=== PATIENT | female | born 1970 | race Caucasian/White ===

== ENCOUNTER 2019-09-25 01:00 | Emergency (ER) | payer BC, OTHER ==
--- NOTE | 2019-09-25 01:56 | PDOC ---
Attending Attestation - Resident Resident Name: Tia Hugo - ED Attending Attestation I have performed the following: I have examined & evaluated the patient, The case was reviewed & discussed with the resident, I agree w/resident's findings & plan - HPI HPI: 09/25/19 04:28 Pt comes with scapular back/chest pain that is muscular in nature. Pt is worried that it may be her heart. She has normal vitals and she is walking about the ER. - Physicial Exam PE: 09/25/19 04:30 Agree with resident exam. - Medical Decision Making 09/25/19 03:16 CBC normal; chem pending 09/25/19 04:29 Chem normally; EKG normal exam is normal CXR canceled as pt wants to go home and she has normal vitals and normal EKG and normal heart and lung exam, and as the meds are helping her pain. Heart Score/ECG Review - ECG Intrepretation Rhythm: Regular Rhythm - Juliaetta Juliaetta: Normal - P and IA Prominent R with upright T in V1 (true posterior MS): No Delta Wave(s) Present: No WPW: No - QRS Poor R Wave Progression: No Q Wave Present: No - ST and T Early Repolarization: No Non Specific ST-T Wave changes: No Flattened T Waves: No Prolonged Q-T Interval: No - ECG Impressions Normal ECG: Yes Non-specific ST Elevation: No Ischemic Changes: No Bradycardia: No Torsades shaggy Pointes: No WPW: No
[2019-09-25 01:59] VITALS: TEMP 97.2; BMI 27.8
[2019-09-25] MEDS ORDERED: METHOCARBAMOL 500 MG TABLET PO ONE (02:25)
[2019-09-25] MEDS ORDERED: LIDOCAINE 5% TOPICAL PATCH TP ONE (02:25)
[2019-09-25] MEDS ORDERED: KETOROLAC TROMETHAMINE 30 MG/1 ML VIAL IVPUSH ONE (02:26)
[2019-09-25] MEDS ORDERED: METHOCARBAMOL 500 MG TABLET ONE (02:38)
[2019-09-25] MEDS ORDERED: KETOROLAC TROMETHAMINE 30 MG/1 ML VIAL ONE (02:39)
[2019-09-25] MEDS ORDERED: LIDOCAINE 5% TOPICAL PATCH ONE (02:39)
[2019-09-25 02:46] LABS: BASO % 1.1 % (0-2.0); EOS % 4.6 % (0-4.5); HEMATOCRIT 41.1 % (32.4-45.2); HEMOGLOBIN 13.4 GM/dL (10.7-15.3); LYMPH % 33.8 % (8-40); MCH 26.8 pg (25.7-33.7); MCHC 32.6 g/dl (32.0-36.0); MEAN CELL VOLUME 82.2 fl (80-96); MEAN PLT VOLUME 9.1 fl (7.5-11.1); MONO % 10.2 % (3.8-10.2); NEUT % 50.3 % (42.8-82.8); PLATELET COUNT 278 K/MM3 (134-434); RDW 13.4 % (11.6-15.6); WHITE BLOOD COUNT 9.3 K/mm3 (4.0-10.0)
[2019-09-25] MEDS ORDERED: ALBUTEROL SO4 2.5/IPRATROPIUM 0.5 INH SOL 3 ML VIAL.NEB. NEB ONE (03:28)
--- NOTE | 2019-09-25 03:47 | PDOC ---
History of Present Illness - General Chief Complaint: Chest Pain Stated Complaint: RIGHT BACK PAIN/CHEST PAIN Time Seen by Provider: 09/25/19 01:46 History Source: Patient Exam Limitations: No Limitations - History of Present Illness Initial Comments: 09/25/19 07:46 48y F with PMH of Asthma presenting to ED with complaints of R upper back pain that started a few weeks ago but worse yesterday when she woke up from a nap. Pt states that the pain is in the R posterior shoulder, worse with movements and deep inspiration. She also endorses chest tightness. Denies SOB, injury, neck pain, numbness/tingling, cough, congestion, n/v/d, abdominal pain, travel, use of OCP, surgery, headache, leg swelling/pain. PMD: PMH: see hpi PSH: none Meds: none Allergies: codeine Social: denies Past History - Past Medical History Allergies/Adverse Reactions: Allergies Allergy/AdvReac Type Severity Reaction Status Date / Time codeine Allergy Verified 09/25/19 01:55 Home Medications: Ambulatory Orders Albuterol Sulfate Inhaler - [Ventolin Hfa *Inhaler*] 1 - 2 inh IH Q4H PRN #1 inhaler 04/19/13 Fluticasone Prop 0.05% Nasal [Flonase] 1 - 2 spray NS DAILY PRN #1 spray.pump Loratadine [Claritin] 10 mg PO DAILY PRN #10 tablet 04/19/13 predniSONE [Deltasone -] 20 mg PO DAILY #5 tablet 04/19/13 Methocarbamol [Robaxin -] 500 mg PO TID #21 tablet 09/25/19 hydrOXYzine HCL LIQUID [Atarax Liquid -] 10 mg PO TID #120 ml 09/25/19 Asthma: Yes COPD: No - Psycho Social/Smoking Cessation Hx Smoking Status: No Smoking History: Never smoked Have you smoked in the past 12 months: No Number of Cigarettes Smoked Daily: 0 Information on smoking cessation initiated: No Hx Alcohol Use: No Drug/Substance Use Hx: No Review of Systems - Review of Systems Constitutional: No: Symptoms Reported HEENTM: No: Symptoms Reported Respiratory: Yes: See HPI Cardiac (ROS): Yes: See HPI ABD/GI: No: Symptoms Reported : No: Symptoms Reported Musculoskeletal: Yes: See HPI Integumentary: No: Symptoms Reported Neurological: No: Symptoms reported *Physical Exam - Vital Signs Last Vital Signs Temp Pulse Resp BP Pulse Ox 97.2 F L 74 20 117/76 98 09/25/19 01:15 09/25/19 01:15 09/25/19 01:15 09/25/19 01:15 09/25/19 01:15 - Physical Exam General Appearance: Yes: Nourished, Appropriately Dressed. No: Apparent Distress HEENT: positive: EOMI, DEBBIE, Normal ENT Inspection Neck: positive: Trachea midline, Supple. negative: Lymphadenopathy (R), Lymphadenopathy (L) Respiratory/Chest: positive: Lungs Clear, Normal Breath Sounds. negative: Chest Tender, Decreased Breath Sounds, Paradoxal Breathing, Crackles, Rales, Rhonchi, Stridor, Wheezing Cardiovascular: positive: Regular Rhythm, Regular Rate, S1, S2. negative: Edema , JVD, Murmur Vascular Pulses: Dorsalis-Pedis (R): 2+, Doralis-Pedis (L): 2+ Gastrointestinal/Abdominal: positive: Normal Bowel Sounds, Soft. negative: Tender Musculoskeletal: positive: Other (R paraspinal tenderness near scapula, worse with movements. ). negative: CVA Tenderness, Vertebral Tenderness Extremity: positive: Normal Capillary Refill Integumentary: positive: Normal Color, Dry, Warm Neurologic: positive: [employer] II-XII NML intact, Fully Oriented, Alert, Normal Mood/ Affect, Normal Response, Motor Strength 5/5 ED Treatment Course - LABORATORY CBC & Chemistry Diagram: 09/25/19 02:18 09/25/19 02:18 - ADDITIONAL ORDERS Additional order review: 09/25/19 02:18 RBC 5.00 MCV 82.2 MCHC 32.6 RDW 13.4 MPV 9.1 Neutrophils % 50.3 Lymphocytes % 33.8 Monocytes % 10.2 Eosinophils % 4.6 H Basophils % 1.1 - RADIOLOGY Radiology Studies Ordered: Category Date Time Status CHEST PA & LAT [RAD] Stat Radiology 09/25/19 01:57 Ordered - Medications Given in the ED: ED Medications Discontinued Medications Generic Name Dose Route Start Last Admin Trade Name Freq PRN Reason Stop Dose Admin Ketorolac Tromethamine 30 mg 09/25/19 02:26 09/25/19 02:45 Toradol Injection - IVPUSH 09/25/19 02:27 30 mg ONCE ONE Administration Lidocaine 1 patch 09/25/19 02:25 09/25/19 02:44 Lidoderm Patch - TP 09/25/19 02:26 1 patch ONCE ONE Administration Methocarbamol 1,000 mg 09/25/19 02:25 09/25/19 02:45 Robaxin - PO 09/25/19 02:26 1,000 mg ONCE ONE Administration Medical Decision Making - Medical Decision Making 09/25/19 07:49 48 y F presenting with back pain. vitals wnl PERC negative. low suspicion for acs, pe. will obtain labs, cxr. given pain meds. pt stated pain meds made her congested, and sob. given albuterol. pain however improved. sob improved, but pt states she is congested, wants prednisone. given decadron, atarax and saline neb. pt feels better. given cardiology f/u. dc home. Discharge - Discharge Information Problems reviewed: Yes Clinical Impression/Diagnosis: Back pain Qualifiers: Back pain location: thoracic back pain Chronicity: unspecified Back pain laterality: right Qualified Code(s): M54.6 - Pain in thoracic spine Condition: Improved Disposition: HOME - Admission No - Additional Discharge Information Prescriptions: hydrOXYzine HCL LIQUID [Atarax Liquid -] 10 mg PO TID #120 ml Methocarbamol [Robaxin -] 500 mg PO TID #21 tablet - Follow up/Referral Referrals: Reji Grey [Primary Care Provider] - Katya Trevino MD [Staff Physician] - Rick Barajas MD [Staff Physician] - Adan Chan MD [Staff Physician] - Jamison Nye MD [Staff Physician] - Hung Louis MD [Staff Physician] - Thomas Zafar MD [Staff Physician] - Kulwinder Leiva MD [Staff Physician] - Alekesy Loyola MD [Staff Physician] - - Patient Discharge Instructions Patient Printed Discharge Instructions: DI for Atypical Chest Pain, DI for Thoracic Back Pain Additional Instructions: You were seen in the emergency room today for back pain. this is likely musculoskeletal. You can take ibuprofen/Advil or Tylenol for the pain as needed. I provided referral to cardiology if you continue to have the chest pain. Please make an appointment with your primary care doctor next week regarding this ED visit. Come back to the emergency room if you feel short of breath, have chest pain, or if any new or concerning symptom develops. Thank you - Post Discharge Activity
[2019-09-25] MEDS ORDERED: DEXAMETHASONE SOD PHOSPHATE 10 MG/1 ML VIAL IVPUSH ONE (03:57)
[2019-09-25] MEDS ORDERED: hydrOXYzine PAMOATE 25 MG CAPSULE (FP) PO ONE ×2 (03:58→04:29)
[2019-09-25 04:20] LABS: ALBUMIN 3.3 g/dl (3.4-5.0); ALK PHOS 57 U/L (45-117); ANION GAP 5 MMOL/L (8-16); BILIRUBIN,TOTAL 0.2 mg/dL (0.2-1); BLOOD UREA NITROGEN 10.7 mg/dL (7-18); CALCIUM 8.6 mg/dL (8.5-10.1); CHLORIDE 109 mmol/L (98-107); CO2 26 mmol/L (21-32); CREATININE 0.6 mg/dL (0.55-1.3); GLUCOSE,RANDOM 89 mg/dL (74-106); POTASSIUM 4.4 mmol/L (3.5-5.1); SGOT/AST 18 U/L (15-37); SGPT/ALT 24 U/L (13-61); SODIUM 139 mmol/L (136-145); TOT PROT 6.7 g/dl (6.4-8.2)
[2019-09-25] MEDS ORDERED: SODIUM CHLORIDE FOR INHALATION 3 ML VIAL.NEB IH ONE (04:26)
[2019-09-25] MEDS ORDERED: DEXAMETHASONE SOD PHOSPHATE 10 MG/1 ML VIAL ONE (04:29)
[2019-09-25 05:04] VITALS: BP 120/82; PULSE 72
--- NOTE | 2019-09-25 15:44 | EKG ---
Test Reason : Blood Pressure : / mmHG Vent. Rate : 070 BPM Atrial Rate : 070 BPM P-R Int : 144 ms QRS Dur : 086 ms QT Int : 432 ms P-R-T Axes : 043 059 044 degrees QTc Int : 466 ms NORMAL SINUS RHYTHM NORMAL ECG WHEN COMPARED WITH ECG OF 10-JAN-2010 22:19, NO SIGNIFICANT CHANGE WAS FOUND Confirmed by MD MAYNARD MOYSES ([id number]) on 09/25/2019 3:44:11 PM Referred By: Confirmed By:NESTOR MAYNARD MD
[2019-09-25] MEDS ORDERED: LIDOCAINE PATCH REMOVAL MC SCH (22:00)
== END 2019-09-25 05:06 | disposition home or self-care (01) ==
LOC: JER 01:00
PROC: 3E0333Z Introduction of Anti-inflammatory into Peripheral Vein, Percutaneous Approach (ICD-10-PCS; principal; 2019-09-25)
PROC: 3E0333Z Introduction of Anti-inflammatory into Peripheral Vein, Percutaneous Approach (ICD-10-PCS; 2019-09-25)
DX: M54.6 Pain in thoracic spine (principal)
CPT/HCPCS: 36415; 80053; 84484; 85025; 93005; 93010; 99283-25; J1100

== ENCOUNTER 2022-02-04 07:40 | Emergency (ER) | payer BC, OTHER ==
[2022-02-04 07:56] VITALS: BP 143/96; PULSE 80; TEMP 98.1; BMI 29.7
[2022-02-04] MEDS ORDERED: FAMOTIDINE 20 MG/50 ML IVPB 20 MG/50 ML MG IVPB ONE ×2 (08:21→08:35)
[2022-02-04] MEDS ORDERED: ONDANSETRON 4 MG/2 ML VIAL IVPUSH ONE (08:21)
[2022-02-04] MEDS ORDERED: ACETAMINOPHEN 1000 MG/100 ML BAG IVPB ONE (08:21)
[2022-02-04] MEDS ORDERED: ONDANSETRON 4 MG/2 ML VIAL ONE (08:35)
[2022-02-04] MEDS ORDERED: ACETAMINOPHEN INJECTION 100 ML IVPB ONE (08:35)
[2022-02-04 09:10] LABS: BASO % 0.7 % (0-2.0); EOS % 5.3 % (0-4.5); HEMOGLOBIN 13.4 GM/dL (10.7-15.3); LYMPH % 24.7 % (8-40); MCH 26.5 pg (25.7-33.7); MCHC 32.6 g/dl (32.0-36.0); MEAN CELL VOLUME 81.1 fl (80-96); MEAN PLT VOLUME 8.9 fl (7.5-11.1); MONO % 8.2 % (3.8-10.2); NEUT % 61.1 % (42.8-82.8); PLATELET COUNT 339 10^3/uL (134-434); RBC 5.05 M/mm3 (3.60-5.2); RDW 13.6 % (11.6-15.6); WHITE BLOOD COUNT 7.1 K/mm3 (4.0-10.0)
[2022-02-04 09:21] LABS: INR 1.03 (0.83-1.09); PROTHROMBIN TIME (PATIENT) 11.9 SEC (9.7-13.0)
[2022-02-04 09:23] LABS: ACTIVATED PTT 30.1 SECONDS (25.2-36.5)
[2022-02-04 09:36] LABS: ALBUMIN 3.5 g/dl (3.4-5.0); BLOOD UREA NITROGEN 8.2 mg/dL (7-18); CALCIUM 9.4 mg/dL (8.5-10.1)
[2022-02-04 09:39] LABS: CREATININE 0.5 mg/dL (0.55-1.3)
[2022-02-04 09:41] LABS: BILIRUBIN,TOTAL 0.4 mg/dL (0.2-1); TOT PROT 7.2 g/dl (6.4-8.2)
== END 2022-02-04 10:59 | disposition home or self-care (01) ==
LOC: JER 07:40
PROC: 3E033GC Introduction of Other Therapeutic Substance into Peripheral Vein, Percutaneous Approach (ICD-10-PCS; principal; 2022-02-04)
DX: R07.9 Chest pain, unspecified (principal); R10.13 Epigastric pain
CPT/HCPCS: 36415; 71045-TC-FY; 76705-TC; 80053; 83690; 84484; 85025; 85610; 85730; 93005; 93010; 99285-25